=== PATIENT | male | born 1965 | race Caucasian/White ===

== ENCOUNTER 2022-03-23 14:52 | Inpatient (IN) | payer MEDICARE, OTHER ==
[~2022-03-23] VITALS: Ht 170.2 cm; Wt 91.4 kg
[~2022-03-23 14:52] MED LIST: ASPI-1444 PO; ATOR40TA28 PO; CITA-144 PO; INSU100C6 SQ; INSU100I4 SQ; LOSA-382 PO; METF-1211 PO; METO25XL PO; ZOLP10TA8 PO
[2022-03-23] MEDS ORDERED: MELA5TAB40 PO (15:07)
[2022-03-23 15:11] LABS: GLUCOSE,POINT OF CARE 118 MG/DL (70-110)
[2022-03-23] MEDS ORDERED: ACTIVATED CHARCOAL 50 GM/240 ML SUSPENSION PO ONE (15:30)
[2022-03-23 15:32] LABS: COVID AG,FIA SOURCE NASAL SWAB
[2022-03-23 15:33] LABS: BASOPHILS % (AUTO) 0.1 % (0.0-2.0); EOSINOPHILS % (AUTO) 7.7 % (1.0-6.0); HEMATOCRIT 39.3 % (41-53); HEMOGLOBIN 13.1 g/dL (13.5-17.5); LYMPHOCYTES # (AUTO) 1.6 K/uL (1.0-4.8); MEAN CORPUSCULAR HEMOGLOBIN 28.8 pg (26.0-34.0); MEAN CORPUSCULAR HGB CONC 33.4 G/dL (31.0-37.0); MEAN CORPUSCULAR VOLUME 86 fL (80-100); MONOCYTES # (AUTO) 0.3 K/uL (0.1-1.0); MONOCYTES % (AUTO) 4.4 % (2.0-9.0); NEUTROPHILS # (AUTO) 4.1 K/uL (1.8-7.7); NEUTROPHILS % (AUTO) 62.8 % (40.0-70.0); PLATELET COUNT (AUTO) 317 K/uL (150-450); RED BLOOD CELL COUNT(AUTO) 4.55 MIL/uL (4.50-5.90); RED CELL DISTRIBUTION WIDTH 14.2 % (11.5-14.5)
[2022-03-23 15:54] LABS: ANION GAP 14 mmol/L (8-16); CARBON DIOXIDE 25 mmol/L (22-29); CHLORIDE 105 mmol/L (98-107); CREATININE 1.37 mg/dL (0.60-1.30); GLUCOSE,RANDOM 140 mg/dL (70-110); POTASSIUM 3.6 mmol/L (3.5-5.1); SODIUM SERUM 144 mmol/L (136-145); UREA NITROGEN, BLOOD 25 mg/dL (7-18)
[2022-03-23 15:55] LABS: GLOMERULAR FILTR. RATE CALC 53 mL/min (>60)
[2022-03-23 15:56] LABS: GLUCOSE,POINT OF CARE 164 MG/DL (70-110)
[2022-03-23 15:59] LABS: SALICYLATE 0.6 mg/dL (2.8-20.0)
[2022-03-23 16:00] LABS: ALANINE AMINOTRANSFERASE 23 U/L (12-78); ALBUMIN 3.2 g/dL (3.4-5.0); ALKALINE PHOSPHATASE 98 U/L (46-116); ASPARTATE AMINOTRANSFERASE 14 U/L (15-37); BILIRUBIN,TOTAL 0.2 mg/dL (0.1-1.0); PHOSPHORUS 3.6 mg/dL (2.5-4.9); TOTAL PROTEIN, SERUM 7.1 g/dL (6.4-8.2)
[2022-03-23 16:01] LABS: ACETAMINOPHEN < 2 mcg/mL (10-30)
[2022-03-23 16:35] LABS: GLUCOSE,POINT OF CARE 191 MG/DL (70-110)
[2022-03-23] MEDS ORDERED: ONDANSETRON HCL 4 MG/2 ML VIAL IVP PRN ×2 (16:45→22:00)
[2022-03-23] MEDS ORDERED: SODIUM CHLORIDE 0.9% 1,000 ML IV ONE (16:45)
[2022-03-23] MEDS ORDERED: 0.9% SODIUM CHLORIDE 10 ML SYRINGE IVP PRN (16:45)
[2022-03-23] MEDS ORDERED: FURO20TA4 PO (16:52)
[2022-03-23] MEDS ORDERED: RANO500T6 PO (16:52)
[2022-03-23] MEDS ORDERED: INSU100V12 SQ (16:52)
[2022-03-23] MEDS ORDERED: ISOS30TA11 PO (16:52)
[2022-03-23] MEDS ORDERED: OMEP20CA12 PO (16:52)
[2022-03-23] MEDS ORDERED: CLOP75TA32 PO (16:52)
[2022-03-23] MEDS ORDERED: INSNOV SQ (16:52)
[2022-03-23] MEDS ORDERED: LIRA0.6P2 SQ (16:54)
[2022-03-23 17:11] LABS: GLUCOSE,POINT OF CARE 116 MG/DL (70-110)
[2022-03-23 17:25] LABS: AMPHET/METH SCREEN,URINE NEGATIVE (NEGATIVE); BARBITURATE SCREEN, URINE NEGATIVE (NEGATIVE); BENZODIAZEPINES SCREEN,URINE NEGATIVE (NEGATIVE); CANNABINOID SCREEN,URINE NEGATIVE (NEGATIVE); COCAINE SCREEN,URINE NEGATIVE (NEGATIVE); METHADONE SCREEN, URINE NEGATIVE (NEGATIVE); OPIATE SCREEN,URINE NEGATIVE (NEGATIVE)
[2022-03-23 17:26] LABS: PHENCYCLIDINE SCREEN,URINE NEGATIVE (NEGATIVE)
[2022-03-23] MEDS ORDERED: DEXTROSE 5%-WATER 1,000 ML IV ONE (17:45)
[2022-03-23 17:51] LABS: GLUCOSE,POINT OF CARE 90 MG/DL (70-110)
[2022-03-23 18:21] LABS: GLUCOSE,POINT OF CARE 105 MG/DL (70-110)
[2022-03-23 18:46] LABS: GLUCOSE,POINT OF CARE 110 MG/DL (70-110)
[2022-03-23] MEDS ORDERED: DEXTROSE 50%-WATER 25 GM/50 ML SYRINGE IVP ONE ×2 (19:45→23:30)
[2022-03-23 19:51] LABS: GLUCOSE,POINT OF CARE 58 MG/DL (70-110)
[2022-03-23 20:00] VITALS: BP 141/89
[2022-03-23] MEDS ORDERED: DEXTROSE 5%-0.45% SODIUM CHL 1,000 ML IV SCH (21:00)
[2022-03-23 21:33] VITALS: BP 129/48
[2022-03-23] MEDS ORDERED: IPRATROPIUM BROMIDE 0.5 MG/2.5 ML NEB SOLUTION NEB PRN (22:00)
[2022-03-23] MEDS ORDERED: ALBUTEROL SULFATE 2.5 MG/0.5 ML NEB SOLUTION NEB PRN (22:00)
[2022-03-23] MEDS ORDERED: MAGNESIUM HYDROXIDE SUSPENSION 30 ML UDCUP PO PRN (22:00)
[2022-03-23] MEDS ORDERED: BISACODYL 10 MG RECTAL RECTAL SUPPOSITORY PR PRN (22:00)
[2022-03-23] MEDS ORDERED: ACETAMINOPHEN 325 MG TABLET PO PRN (22:00)
[2022-03-23 22:16] LABS: GLUCOSE,POINT OF CARE 116 MG/DL (70-110)
[2022-03-23] MEDS: HEPARIN SODIUM,PORCINE 5,000 UNITS/ML VIAL SQ SCH (23:37)
[2022-03-24] VITALS (8 sets, daily range): BP systolic 135–164; BP diastolic 59–82
[2022-03-24 00:41] LABS: GLUCOSE,POINT OF CARE 114 MG/DL (70-110)
[2022-03-24] MEDS ORDERED: PNEUMOCOCCAL VACCINE POLYVALENT 0.5 ML VIAL [PPSV23] IM. ONE (01:00)
[2022-03-24] MEDS: SODIUM CHLORIDE 77 MEQ in DEXTROSE 10%-WATER 1,000 ML IV SCH ×2 (01:03→14:42)
[2022-03-24 02:56] LABS: GLUCOSE,POINT OF CARE 106 MG/DL (70-110)
[2022-03-24 05:10] LABS: BASOPHILS % (AUTO) 0.2 % (0.0-2.0); EOSINOPHILS % (AUTO) 5.7 % (1.0-6.0); HEMATOCRIT 38.7 % (41-53); HEMOGLOBIN 12.9 g/dL (13.5-17.5); LYMPHOCYTES # (AUTO) 2.8 K/uL (1.0-4.8); MEAN CORPUSCULAR HEMOGLOBIN 28.6 pg (26.0-34.0); MEAN CORPUSCULAR HGB CONC 33.2 G/dL (31.0-37.0); MEAN CORPUSCULAR VOLUME 86 fL (80-100); MONOCYTES % (AUTO) 8.2 % (2.0-9.0); NEUTROPHILS # (AUTO) 7.3 K/uL (1.8-7.7); NEUTROPHILS % (AUTO) 61.9 % (40.0-70.0); PLATELET COUNT (AUTO) 322 K/uL (150-450); RED CELL DISTRIBUTION WIDTH 14.1 % (11.5-14.5)
[2022-03-24 05:16] LABS: GLUCOSE,POINT OF CARE 31 MG/DL (70-110)
[2022-03-24 05:16] LABS: GLUCOSE,POINT OF CARE 79 MG/DL (70-110)
[2022-03-24 05:27] LABS: ALANINE AMINOTRANSFERASE 21 U/L (12-78); ALBUMIN 2.8 g/dL (3.4-5.0); ALKALINE PHOSPHATASE 87 U/L (46-116); ANION GAP 11 mmol/L (8-16); ASPARTATE AMINOTRANSFERASE 13 U/L (15-37); BILIRUBIN,TOTAL 0.2 mg/dL (0.1-1.0); CALCIUM, TOTAL 9.5 mg/dL (8.8-10.5); CARBON DIOXIDE 25 mmol/L (22-29); CHLORIDE 105 mmol/L (98-107); CREATININE 0.81 mg/dL (0.60-1.30); GLUCOSE,RANDOM 78 mg/dL (70-110); POTASSIUM 3.8 mmol/L (3.5-5.1); SODIUM SERUM 141 mmol/L (136-145); TOTAL PROTEIN, SERUM 6.7 g/dL (6.4-8.2); UREA NITROGEN, BLOOD 18 mg/dL (7-18)
[2022-03-24 05:29] LABS: GLOMERULAR FILTR. RATE CALC > 60 mL/min (>60)
[2022-03-24] MEDS: CLOPIDOGREL BISULFATE 75 MG TABLET PO SCH (07:58)
[2022-03-24] MEDS: PANTOPRAZOLE SODIUM 40 MG/VIAL IVP SCH (07:58)
[2022-03-24] MEDS: HEPARIN SODIUM,PORCINE 5,000 UNITS/ML VIAL SQ SCH ×2 (07:59→16:34)
[2022-03-24] MEDS: DOCUSATE SODIUM 100 MG CAPSULE PO SCH ×2 (07:59→20:18)
[2022-03-24 12:22] LABS: GLUCOSE,POINT OF CARE 147 MG/DL (70-110)
[2022-03-24 12:22] LABS: GLUCOSE,POINT OF CARE 192 MG/DL (70-110)
[2022-03-24 12:22] LABS: GLUCOSE,POINT OF CARE 201 MG/DL (70-110)
[2022-03-24 12:22] LABS: GLUCOSE,POINT OF CARE 79 MG/DL (70-110)
[2022-03-24 16:26] LABS: GLUCOSE,POINT OF CARE 224 MG/DL (70-110)
[2022-03-24 18:01] LABS: GLUCOSE,POINT OF CARE 199 MG/DL (70-110)
[2022-03-24] MEDS: METOPROLOL SUCCINATE 25 MG ER TABLET PO SCH (20:18)
[2022-03-24] MEDS: CITALOPRAM HYDROBROMIDE 20 MG TABLET PO SCH (20:18)
[2022-03-24] MEDS: ATORVASTATIN CALCIUM 40 MG TABLET PO SCH (20:18)
[2022-03-24] MEDS: ASPIRIN 81 MG DR TABLET PO SCH (20:18)
[2022-03-24 20:21] LABS: GLUCOSE,POINT OF CARE 199 MG/DL (70-110)
[2022-03-24 20:22] LABS: GLUCOSE,POINT OF CARE 261 MG/DL (70-110)
[2022-03-24 21:46] LABS: GLUCOSE,POINT OF CARE 249 MG/DL (70-110)
[2022-03-24] MEDS: ZOLPIDEM TARTRATE 5 MG TABLET PO PRN (22:16)
[2022-03-25] VITALS: BP 141/52
[2022-03-25] MEDS: HEPARIN SODIUM,PORCINE 5,000 UNITS/ML VIAL SQ SCH ×3 (00:11→17:23)
[2022-03-25 00:16] LABS: GLUCOSE,POINT OF CARE 248 MG/DL (70-110)
[2022-03-25 02:15] LABS: GLUCOSE,POINT OF CARE 207 MG/DL (70-110)
[2022-03-25 04:00] VITALS: BP 157/68
[2022-03-25 04:41] LABS: GLUCOSE,POINT OF CARE 210 MG/DL (70-110)
[2022-03-25 06:06] LABS: GLUCOSE,POINT OF CARE 210 MG/DL (70-110)
[2022-03-25 08:15] VITALS: BP 135/104
[2022-03-25 08:25] LABS: GLUCOSE,POINT OF CARE 244 MG/DL (70-110)
[2022-03-25] MEDS: DOCUSATE SODIUM 100 MG CAPSULE PO SCH ×2 (09:00→21:11)
[2022-03-25] MEDS: PANTOPRAZOLE SODIUM 40 MG/VIAL IVP SCH (11:42)
[2022-03-25] MEDS: CLOPIDOGREL BISULFATE 75 MG TABLET PO SCH (11:47)
[2022-03-25 11:56] LABS: GLUCOSE,POINT OF CARE 296 MG/DL (70-110)
[2022-03-25 11:56] LABS: GLUCOSE,POINT OF CARE 296 MG/DL (70-110)
[2022-03-25] MEDS ORDERED: INSULIN LISPRO 100 UNITS/ML SQ PRN (12:00)
[2022-03-25] MEDS ORDERED: DEXTROSE 50%-WATER 25 GM/50 ML SYRINGE IVP PRN ×2 (12:00→18:00)
[2022-03-25 12:39] VITALS: BP 135/64
[2022-03-25 16:00] VITALS: BP 171/74
[2022-03-25 19:46] LABS: GLUCOSE,POINT OF CARE 226 MG/DL (70-110)
[2022-03-25 20:00] VITALS: BP 158/84
[2022-03-25] MEDS: LOSARTAN POTASSIUM 50 MG TABLET PO SCH (21:11)
[2022-03-25] MEDS: CITALOPRAM HYDROBROMIDE 20 MG TABLET PO SCH (21:11)
[2022-03-25] MEDS: ASPIRIN 81 MG DR TABLET PO SCH (21:11)
[2022-03-25] MEDS: METOPROLOL SUCCINATE 25 MG ER TABLET PO SCH (21:12)
[2022-03-25] MEDS: ATORVASTATIN CALCIUM 40 MG TABLET PO SCH (21:12)
[2022-03-25] MEDS: ZOLPIDEM TARTRATE 5 MG TABLET PO PRN (21:12)
[2022-03-25] MEDS: INSULIN GLARGINE,HUM.REC.ANLOG 100 UNITS/ML SQ SCH (21:15)
[2022-03-25] MEDS: INSULIN LISPRO 100 UNITS/ML SQ PRN (21:16)
[2022-03-25 23:51] LABS: GLUCOSE,POINT OF CARE 226 MG/DL (70-110)
[2022-03-26] VITALS (9 sets, daily range): BP systolic 140–183; BP diastolic 61–84
[2022-03-26] MEDS: HEPARIN SODIUM,PORCINE 5,000 UNITS/ML VIAL SQ SCH ×3 (00:04→17:16)
[2022-03-26] MEDS: INSULIN LISPRO 100 UNITS/ML SQ PRN ×6 (00:44→21:23)
[2022-03-26 02:21] LABS: GLUCOSE,POINT OF CARE 207 MG/DL (70-110)
[2022-03-26 06:01] LABS: GLUCOSE,POINT OF CARE 174 MG/DL (70-110)
[2022-03-26 07:46] LABS: GLUCOSE,POINT OF CARE 191 MG/DL (70-110)
[2022-03-26] MEDS: DOCUSATE SODIUM 100 MG CAPSULE PO SCH ×2 (08:10→20:58)
[2022-03-26] MEDS: FUROSEMIDE 20 MG TABLET PO SCH (08:10)
[2022-03-26] MEDS: PANTOPRAZOLE SODIUM 40 MG/VIAL IVP SCH (08:10)
[2022-03-26] MEDS: CLOPIDOGREL BISULFATE 75 MG TABLET PO SCH (08:11)
[2022-03-26 12:11] LABS: GLUCOSE,POINT OF CARE 219 MG/DL (70-110)
[2022-03-26 17:21] LABS: GLUCOSE,POINT OF CARE 230 MG/DL (70-110)
[2022-03-26] MEDS: CITALOPRAM HYDROBROMIDE 20 MG TABLET PO SCH (20:59)
[2022-03-26] MEDS: ZOLPIDEM TARTRATE 5 MG TABLET PO PRN (20:59)
[2022-03-26] MEDS: ATORVASTATIN CALCIUM 40 MG TABLET PO SCH (20:59)
[2022-03-26] MEDS: ASPIRIN 81 MG DR TABLET PO SCH (20:59)
[2022-03-26] MEDS: LOSARTAN POTASSIUM 50 MG TABLET PO SCH (20:59)
[2022-03-26] MEDS: INSULIN GLARGINE,HUM.REC.ANLOG 100 UNITS/ML SQ SCH (21:04)
[2022-03-26 21:11] LABS: GLUCOSE,POINT OF CARE 238 MG/DL (70-110)
[2022-03-26] MEDS: METOPROLOL SUCCINATE 25 MG ER TABLET PO SCH (21:16)
[2022-03-26 22:36] LABS: BASOPHILS % (AUTO) 0.6 % (0.0-2.0); EOSINOPHILS % (AUTO) 7.8 % (1.0-6.0); HEMATOCRIT 38.2 % (41-53); LYMPHOCYTES # (AUTO) 3.5 K/uL (1.0-4.8); LYMPHOCYTES % (AUTO) 34.3 % (22.0-44.0); MEAN CORPUSCULAR HEMOGLOBIN 28.9 pg (26.0-34.0); MEAN CORPUSCULAR VOLUME 85 fL (80-100); MONOCYTES # (AUTO) 0.8 K/uL (0.1-1.0); MONOCYTES % (AUTO) 7.7 % (2.0-9.0); NEUTROPHILS % (AUTO) 49.6 % (40.0-70.0); PLATELET COUNT (AUTO) 308 K/uL (150-450); RED BLOOD CELL COUNT(AUTO) 4.51 MIL/uL (4.50-5.90)
[2022-03-26 22:47] LABS: ANION GAP 9 mmol/L (8-16); CALCIUM, TOTAL 9.2 mg/dL (8.8-10.5); CARBON DIOXIDE 24 mmol/L (22-29); CHLORIDE 99 mmol/L (98-107); CREATININE 1.04 mg/dL (0.60-1.30); GLUCOSE,RANDOM 236 mg/dL (70-110); POTASSIUM 4.3 mmol/L (3.5-5.1); SODIUM SERUM 132 mmol/L (136-145); UREA NITROGEN, BLOOD 19 mg/dL (7-18)
[2022-03-26 22:50] LABS: GLOMERULAR FILTR. RATE CALC > 60 mL/min (>60)
[2022-03-26 22:52] LABS: ALANINE AMINOTRANSFERASE 25 U/L (12-78); ALKALINE PHOSPHATASE 104 U/L (46-116); ASPARTATE AMINOTRANSFERASE 19 U/L (15-37); BILIRUBIN,TOTAL 0.3 mg/dL (0.1-1.0); TOTAL PROTEIN, SERUM 7.2 g/dL (6.4-8.2)
[2022-03-27] VITALS (8 sets, daily range): BP systolic 117–188; BP diastolic 57–73
[2022-03-27] MEDS: HEPARIN SODIUM,PORCINE 5,000 UNITS/ML VIAL SQ SCH ×2 (00:02→08:14)
[2022-03-27] MEDS: INSULIN LISPRO 100 UNITS/ML SQ PRN ×2 (04:23→11:45)
[2022-03-27] MEDS: CLOPIDOGREL BISULFATE 75 MG TABLET PO SCH (08:14)
[2022-03-27] MEDS: FUROSEMIDE 20 MG TABLET PO SCH (08:14)
[2022-03-27] MEDS: DOCUSATE SODIUM 100 MG CAPSULE PO SCH (08:14)
[2022-03-27] MEDS ORDERED: PANTOPRAZOLE SODIUM 40 MG DR TABLET PO ONE (08:15)
[2022-03-27 12:02] LABS: GLUCOMETER DEV NAME(LOC) 6N.2; GLUCOSE,POINT OF CARE 267 MG/DL (70-110)
== END 2022-03-27 16:30 | disposition home or self-care (01) | DRG 918 ==
LOC: EMS 14:54 → ICU 18:13 → 6S 03-27 06:30
PROVIDERS: ADMIT Hospitalist; ATTEND Hospitalist
DX: T38.3X2A Poisoning by insulin and oral hypoglycemic [antidiabetic] drugs, intentional self-harm, initial encounter (principal); F32.2 Major depressive disorder, single episode, severe without psychotic features; E44.0 Moderate protein-calorie malnutrition; E11.649 Type 2 diabetes mellitus with hypoglycemia without coma; E78.5 Hyperlipidemia, unspecified; Z20.822 Contact with and (suspected) exposure to COVID-19; F22 Delusional disorders; I10 Essential (primary) hypertension; I25.10 Atherosclerotic heart disease of native coronary artery without angina pectoris; H54.8 Legal blindness, as defined in USA; Z28.21 Immunization not carried out because of patient refusal; Y92.89 Other specified places as the place of occurrence of the external cause; Z79.899 Other long term (current) drug therapy; Z79.82 Long term (current) use of aspirin; Z68.31 Body mass index [BMI] 31.0-31.9, adult; Z79.02 Long term (current) use of antithrombotics/antiplatelets
CPT/HCPCS: 80053; 82962; 83735; 84100; 85025; 87081; 93005; 99291; C9113; G0378; G0480; G0481; J1644; J1815; J7060; J7131